=== PATIENT | female | born 1945 | race Caucasian/White ===

== ENCOUNTER 2017-06-11 11:16 | Inpatient (IN) | payer BC, MEDICARE ==
[~2017-06-11] VITALS: Ht 152.4 cm; Wt 68.4 kg
[~2017-06-11 11:16] MED LIST: ALLEGRA-D12 HOUR PO; COMBIVENT INH; DUONEB IN; FLONASE AL50 MCG/ACT NAB; LEVAQUIN500 MG PO; MEDDOSEPAK OR; NICODERM C21 MG/241 TD; NYSTATIN100000 M1 PO; PRILOSEC20 MG PO; PULMICORT180 MCG IN; XANAX0.25 MG PO; ZOLOFT50 MG PO
[2017-06-11 11:32] VITALS: BP 102/67
[2017-06-11 12:09] LABS: MEAN CORPUSCULAR HGB 24.4 pG CALC (26.0-32.0); NEUT# 10.62 thou/uL (2.00-7.15); RED BLOOD COUNT 4.22 mill/uL (4.20-5.60); RED CELL DISTRI WIDTH 15.6 % (11.5-15.5)
[2017-06-11 12:10] LABS: HEMATOCRIT 33.2 % (37.0-47.0); HEMOGLOBIN 10.3 g/dl (12.0-16.0); MEAN CELL VOLUME 78.7 fL CALC (80.0-100.0)
[2017-06-11 12:24] LABS: ANION GAP 19 (6-22 (CALC)); BUN 22 mg/dL (8-23); BUN/CREATININE RATIO 28 (12-20 (CALC)); CARBON DIOXIDE 29 mmol/l (22-30); CHLORIDE 93 mmol/l (95-108); CREATININE 0.8 mg/dL (0.5-1.0); GFR > 60 ML/MIN (>=60 (CALC)); GFR FOR AFR.AMER. > 60 ML/MIN (>=60 (CALC)); POTASSIUM 3.7 mmol/l (3.5-5.1); SODIUM 137 mmol/l (137-146)
[2017-06-11 14:46] LABS: URINE BILIRUBIN - DIPSTICK NEGATIVE (NEGATIVE); URINE BLOOD DIPSTICK MODERATE (NEGATIVE); URINE COLOR YELLOW; URINE GLUCOSE - DIPSTICK NEGATIVE (NEGATIVE); URINE KETONE TRACE mg/dL (NEGATIVE); URINE PROTEIN - DIPSTICK 100 mg/dL (NEG-TRACE); URINE UROBILINOGEN - DIPSTICK 0.2 E.U./dL (0.2)
[2017-06-11 14:47] LABS: URINE CLARITY TURBID; URINE LEUK ESTERASE MODERATE (NEGATIVE); URINE NITRITE - DIPSTICK POSITIVE (Negative)
[2017-06-11 14:55] LABS: URINE BACTERIA MODERATE hpf; URINE SQUAMOUS EPITHELIAL CELL FEW EPI/hpf (0-FEW); URINE WBC >100 WBC/hpf (0-5)
[2017-06-11] MEDS ORDERED: ADVAIR HF1 IN (15:36)
[2017-06-11] MEDS ORDERED: SPIRIVA RE2.5 MCG/AC IN (15:37)
[2017-06-11] MEDS ORDERED: PROAIR HFA IN (15:39)
[2017-06-11] MEDS ORDERED: ZOLOFT50 MG PO (15:40)
[2017-06-11] MEDS ORDERED: SINGULAIR10 MG PO (15:47)
[2017-06-11 16:00] VITALS: BP 94/64
[2017-06-11 20:00] VITALS: BP 91/62
[2017-06-12] VITALS (7 sets, daily range): BP systolic 100–117; BP diastolic 52–74
[2017-06-12 06:14] LABS: ALKALINE PHOSPHATASE 87 u/l (38-126); ANION GAP 14 (6-22 (CALC)); BILIRUBIN, TOTAL 0.4 mg/dL (0.0-1.4); BUN 21 mg/dL (8-23); BUN/CREATININE RATIO 37 (12-20 (CALC)); CARBON DIOXIDE 31 mmol/l (22-30); CHLORIDE 99 mmol/l (95-108); CREATININE 0.6 mg/dL (0.5-1.0); GFR > 60 ML/MIN (>=60 (CALC)); GFR FOR AFR.AMER. > 60 ML/MIN (>=60 (CALC)); POTASSIUM 3.5 mmol/l (3.5-5.1); SGOT/AST 17 u/l (9-36); SGPT/ALT 31 u/l (11-66); SODIUM 142 mmol/l (137-146)
[2017-06-12 06:17] LABS: TOTAL PROTEIN 5.8 g/dL (6.3-8.2)
[2017-06-13 04:50] VITALS: BP 128/73
[2017-06-13 05:33] LABS: HEMATOCRIT 31.7 % (37.0-47.0); HEMOGLOBIN 9.5 g/dl (12.0-16.0); MEAN CELL VOLUME 80.1 fL CALC (80.0-100.0); RED BLOOD COUNT 3.96 mill/uL (4.20-5.60); RED CELL DISTRI WIDTH 15.4 % (11.5-15.5)
[2017-06-13 05:48] LABS: ANION GAP 14 (6-22 (CALC)); BUN 21 mg/dL (8-23); BUN/CREATININE RATIO 34 (12-20 (CALC)); CARBON DIOXIDE 34 mmol/l (22-30); CHLORIDE 99 mmol/l (95-108); CREATININE 0.6 mg/dL (0.5-1.0); GFR > 60 ML/MIN (>=60 (CALC)); GFR FOR AFR.AMER. > 60 ML/MIN (>=60 (CALC)); POTASSIUM 3.9 mmol/l (3.5-5.1); SODIUM 143 mmol/l (137-146)
[2017-06-13 09:12] VITALS: BP 134/63
[2017-06-13] MEDS ORDERED: PREDNISONE10 MG PO (10:22)
== END 2017-06-13 12:15 | disposition home or self-care (01) | DRG 190 ==
LOC: MS2 11:16
PROVIDERS: ADMIT Internal Medicine; ATTEND Internal Medicine
DX: J44.1 Chronic obstructive pulmonary disease with (acute) exacerbation (principal); J96.20 Acute and chronic respiratory failure, unspecified whether with hypoxia or hypercapnia; Z99.81 Dependence on supplemental oxygen; N39.0 Urinary tract infection, site not specified; B96.20 Unspecified Escherichia coli [E. coli] as the cause of diseases classified elsewhere; Z85.3 Personal history of malignant neoplasm of breast; Z87.891 Personal history of nicotine dependence
CPT/HCPCS: J1956

== ENCOUNTER 2019-06-19 15:13 | Inpatient (IN) | payer BC, MEDICARE ==
[~2019-06-19] VITALS: Ht 152.4 cm; Wt 54.9 kg
[~2019-06-19 15:13] MED LIST changes: +ADVAIR HF1 IN; +PREDNISONE10 MG PO; +PROAIR HFA IN; +SINGULAIR10 MG PO; +SPIRIVA RE2.5 MCG/AC IN
--- NOTE | 2019-06-19 15:19 | NUR ---
Pt to room # 6 via W/C for bedside triage
--- NOTE | 2019-06-19 16:00 | NUR ---
TO THIS STAFF MEMBER , PT DENIES ANY DIZZINESS/ STATES THINKS IT IS ALL A UTI, PT IS ON O2 FOR 5 YEARS, ELISEOYI HAS NOT SMOKED FOR OVER 7 YEARS, BUT HAS COPD, CHF. SIGNIFICANT OTHER AT BEDSIDE.
[2019-06-19 16:03] LABS: HEMATOCRIT 35.4 % (37.0-47.0); HEMOGLOBIN 11.5 g/dl (12.0-16.0); IMMATURE GRANULOCYTES 0.5 % (0.0-5.0); MEAN CORPUSCULAR HGB 24.7 pG CALC (26.0-32.0); MEAN CORPUSCULAR HGB CONC 32.5 g/dL CAL (32.0-36.0); RED BLOOD COUNT 4.66 mill/uL (4.20-5.60); RED CELL DISTRI WIDTH 15.1 % (11.5-15.5)
[2019-06-19 16:21] LABS: ALBUMIN 4.1 g/dL (3.2-5.0); ALKALINE PHOSPHATASE 71 u/l (38-126); BUN 14 mg/dL (8-23); BUN/CREATININE RATIO 31 (12-20 (CALC)); CREATININE 0.5 mg/dL (0.5-1.0); GFR > 60 ML/MIN (>=60 (CALC)); GFR FOR AFR.AMER. > 60 ML/MIN (>=60 (CALC)); POTASSIUM 3.1 mmol/l (3.5-5.1); TOTAL PROTEIN 6.5 g/dL (6.3-8.2)
[2019-06-19 16:27] LABS: CARBON DIOXIDE 38 mmol/l (22-30)
--- NOTE | 2019-06-19 16:30 | NUR ---
PT UP TO BEDSIDE COMMODE. APPEARS VERY SHAKY, BUT STATES THAT IS HER NORMAL.
[2019-06-19 16:31] LABS: ANION GAP 10 (6-22 (CALC)); BILIRUBIN, TOTAL 0.6 mg/dL (0.0-1.4); CHLORIDE 81 mmol/l (95-108); SGOT/AST 34 u/l (9-36); SODIUM 126 mmol/l (137-146)
[2019-06-19 16:32] LABS: MYOGLOBIN 65 ng/mL (0 - 62)
[2019-06-19 16:54] LABS: URINE BILIRUBIN - DIPSTICK NEGATIVE (NEGATIVE); URINE BLOOD DIPSTICK NEGATIVE (NEGATIVE); URINE COLOR YELLOW; URINE GLUCOSE - DIPSTICK NEGATIVE (NEGATIVE); URINE KETONE TRACE mg/dL (NEGATIVE); URINE LEUK ESTERASE NEGATIVE (NEGATIVE); URINE NITRITE - DIPSTICK NEGATIVE (Negative); URINE PROTEIN - DIPSTICK NEGATIVE (NEG-TRACE); URINE SPECIFIC GRAVITY 1.015; URINE UROBILINOGEN - DIPSTICK 0.2 E.U./dL (0.2)
--- NOTE | 2019-06-19 17:37 | NUR ---
PT RESTING QUIETLY ON STRETCHER, IV FLUIDS INFUSING. STATES FEELS A LITTLE BETTER
--- NOTE | 2019-06-19 17:54 | NUR ---
TRIED TO RECONCILE MEDICATION LIST. PT DOES NOT KNOW DOSAGES OR HOW OFTEN, AND SAYS SHE DOES NOT HAVE A LIST THAT SHOWS THAT.
--- NOTE | 2019-06-19 18:11 | NUR ---
PT PLACED BACK ON BED PAIN PER REQUEST, APPROX 300CC URINE OUTPUT
--- NOTE | 2019-06-19 18:55 | NUR ---
RECEIVED BEDSIDE REPORT FROM DANITA Nesbitt. PATIENT RESTING QUIETLY AT THIS TIME.
--- NOTE | 2019-06-19 19:48 | NUR ---
PATIENT AND FAMILY NOTIFIED OF ROOM ASSIGNMENT AND VISITATION RESTRICTION. PATIENT BELONGINGS GIVEN TO SPOUSE TO TAKE HOME.
--- NOTE | 2019-06-19 20:06 | NUR ---
HAND OFF REPORT GIVEN TO INPATIENT NURSE.PATIENT TO ROOM 261.
[2019-06-19 20:25] VITALS: BP 120/69
--- NOTE | 2019-06-19 20:25 | NUR ---
pt arrived to the floor via stretcher, reports being "very weak" and was unable to self transfer from the stretcher to the bed. Pt appears to be in stable condition at this time. sob upon exertion is noted. 02nc on 2L, pt reports being home dependent. pt reports sob is normal for her due to copd. v/s assessed and pt is being oriented to room, call system. bed, lights and tv.
--- NOTE | 2019-06-19 21:30 | NUR ---
PT ASSESSMENT COMPLETED AND ADMISSION QUESTIONS REVIEWED. PT IS A POOR HISTORIAN, BUT APPEARS LOC X4. REPORTS THAT SHE LIVES AT HOME W/. HAD BEEN TREATED RECENTLY FOR UTI, BUT GENERALIZED WEAKNESS WORSENED IN THE LAST COUPLE OF DAYS. PT REPORTS FEELING SOB, BUT REPORTS THAT HER NORMAL BASELINE. 02 2LNC IS ON. IVF STARTED AT THIS TIME, NS @75 TO PERIPHERAL IV, SITE APPEARS HEALTHY. SKIN APPEARS INTACT. PT UNABLE TO REPORT LAST BM, BUT STATES A LACK OF APPETITE LATELY. LUNG SOUNDS CLEAR UPPER W/DIM LUNG SOUNDS BLL. PT BECOMES SOB UPON TALKING OR EXERTIONAL. PUREWICK HAS BEEN PLACED DUE TO PT'S WEAKNESS AND SOB AT THIS TIME, STATING SHE IS UNABLE TO AMBULATE W/ASSISTANCE TO BSC. WILL CONTINUE TO MONITOR. CALL LIGHT AT SIDE AND PT REVIEWED CALL SYSTEM AND ENCOURAGED TO CALL NEEDS ARISE.
[2019-06-19 23:50] VITALS: BP 110/65
--- NOTE | 2019-06-19 23:54 | NUR ---
COLD STRIP FEEDER IN OBTAINING V/S, NO S/O DISTRESS NOTED. PT DENIES ANY NEEDS AT THIS TIME. PUREWICK IN PLACE W/SUCTION ON CONT LOW.
--- NOTE | 2019-06-20 01:36 | NUR ---
pt sleeping, no s/o distress noted. call light at side.
[2019-06-20 03:40] VITALS: BP 101/59
--- NOTE | 2019-06-20 03:51 | NUR ---
PT SLEEPING SOUNDLY, NO S/O DISTRESS NOTED. CALL LIGHT AT BEDSIDE.
[2019-06-20 05:10] LABS: BUN 11 mg/dL (8-23); BUN/CREATININE RATIO 27 (12-20 (CALC)); CHLORIDE 89 mmol/l (95-108); CREATININE 0.4 mg/dL (0.5-1.0); GFR > 60 ML/MIN (>=60 (CALC)); GFR FOR AFR.AMER. > 60 ML/MIN (>=60 (CALC)); SODIUM 132 mmol/l (137-146)
[2019-06-20 05:16] LABS: ANION GAP 8 (6-22 (CALC)); CARBON DIOXIDE 38 mmol/l (22-30)
--- NOTE | 2019-06-20 07:00 | NUR ---
REPORT RECEIVED FROM DANITA SOTO. PT RESTING IN BED FILI FOWLERS; ALERT AND ORIENTED X 3. DENIES PAIN. RESPIRATIONS EVEN AND UNLABORED ON OXYGEN 2L VIA NC WHICH SHE IS HOME DEPENDENT UPON. IV FLUIDS INFUSING WITHOUT DIFFICULTY; IV SITE APPEARS HEALTHY. TELE ON. PLAN OF CARE REVIEWED. PT ENCOURAGED TO VERBALIZE CONCERNS. STATES UNDERSTANDING. SAFETY MEASURES IN PLACE. CALL LIGHT WITHIN REACH.
[2019-06-20 08:00] VITALS: BP 132/54
--- NOTE | 2019-06-20 08:49 | NUR ---
PT REPORTING SEVERE ANXIETY; XANAX GIVEN AND NURSE AT BEDSIDE. RELAXATION TECHNIQUES ENCOURAGED.
--- NOTE | 2019-06-20 08:53 | NUR ---
DR. CRISTINA AT BEDSIDE.
--- NOTE | 2019-06-20 09:55 | NUR ---
ADDITIONAL DOSE OF XANAX GIVEN FOR ANXIETY AND NEW MEDS ORDERED. PT APPEARS MORE RELAXED WITH IMPROVED BREATHING. SON UPDATED; QUESTIONS ANSWERED TO SATISFACTION.
[2019-06-20] MEDS ORDERED: ZOLOFT100 MG PO (10:19)
[2019-06-20] MEDS ORDERED: ADVAIR HF1 IN (10:20)
[2019-06-20] MEDS ORDERED: XANAX0.25 MG PO (10:20)
[2019-06-20] MEDS ORDERED: SPIRIVA RE1.25 MCG/A INHW/SPAC (10:21)
[2019-06-20] MEDS ORDERED: PROAIR HFA IN (10:21)
[2019-06-20 10:41] VITALS: BP 105/63
--- NOTE | 2019-06-20 11:04 | NUR ---
PT SITTING UP TAKING TO SON ON CELL PHONE; MUCH CALMER. SECOND DOSE OF POTASSIUM ADMINISTERED. PURWIK CATHETER IN PLACE; CLEAR YELLOW URINE.
--- NOTE | 2019-06-20 14:00 | NUR ---
PT AT BEDSIDE FOR EVAL. PT AMBULATED WITH WALKER TO BATHROOM. PURWIK REPLACED.
[2019-06-20 15:35] VITALS: BP 117/60
--- NOTE | 2019-06-20 16:19 | NUR ---
PT note Patient is seen for evaluation. She would prefer to go home with home health. She is limited by severe weakness and dyspnea at 2 plus when ambulating 20 or more feet. She is weak and would benefit from a walker and PT and OT at discharge. Please refer to full eval for somplete results
--- NOTE | 2019-06-20 16:34 | NUR ---
XANAX AND MIRALAX GIVEN AT THIS TIME. PT ANXIOUS AND WORRIED ABOUT DISCHARGE PLANS. ALLOWED PT TO VERBALIZE CONCERNS.
--- NOTE | 2019-06-20 17:23 | NUR ---
PT C/O ANXIETY AND WORRIED ABOUT MEDICATIONS. DISCUSSED MEDS TO BE GIVEN AND ENOURAGED PT TO VERBALIZE MED CONCERNS WITH MD TOMORROW DURING ROUNDS. RELAXATION TECHNIQUES ENCOURAGED WELL.
[2019-06-20 18:35] VITALS: BP 115/63
--- NOTE | 2019-06-20 20:35 | NUR ---
PT RESTING IN BED, ALERT AND ORIENTED. PT SEEMS ANXIOUS. RESPIRATIONS SHALLOW ON O2 @ 2L VIA NC. PEDAL PULSES STRONG. PT DENIES ANY PAIN AT THIS TIME. PT EDUCATED ON MEDS. TELE IN PLACE. CALL VERA WITHIN REACH, WILL CONTINUE TO MONITOR.
[2019-06-21] VITALS (7 sets, daily range): BP systolic 111–124; BP diastolic 61–70
--- NOTE | 2019-06-21 00:02 | NUR ---
PT RESTING IN BED. NO S/S OF DISTRESS AT THIS TIME. TELE IN PLACE. WILL CONMTINUE TO MONITOR.
--- NOTE | 2019-06-21 04:02 | NUR ---
PT RESTING IN BED. RESPIRATIONS EVEN AND UNLABORED ON O2 @ 2L VIA NC. NO S/S OF DISTRESS AT THIS TIME. SAFETY PRECAUTIONS IN PLACE. WILL CONTINUE TO MONITOR.
[2019-06-21 05:08] LABS: HEMATOCRIT 35.9 % (37.0-47.0); IMMATURE GRANULOCYTES 0.6 % (0.0-5.0); MEAN CORPUSCULAR HGB 25.3 pG CALC (26.0-32.0); MEAN CORPUSCULAR HGB CONC 30.6 g/dL CAL (32.0-36.0); NEUT# 5.41 thou/uL (2.00-7.15); RED BLOOD COUNT 4.35 mill/uL (4.20-5.60); RED CELL DISTRI WIDTH 15.7 % (11.5-15.5)
[2019-06-21 05:15] LABS: MEAN CELL VOLUME 82.5 fL CALC (80.0-100.0)
[2019-06-21 05:28] LABS: BUN 17 mg/dL (8-23); BUN/CREATININE RATIO 35 (12-20 (CALC)); CHLORIDE 97 mmol/l (95-108); CREATININE 0.5 mg/dL (0.5-1.0); GFR > 60 ML/MIN (>=60 (CALC)); GFR FOR AFR.AMER. > 60 ML/MIN (>=60 (CALC))
[2019-06-21 05:31] LABS: ANION GAP 8 (6-22 (CALC)); CARBON DIOXIDE 39 mmol/l (22-30); POTASSIUM 4.5 mmol/l (3.5-5.1); SODIUM 139 mmol/l (137-146)
--- NOTE | 2019-06-21 08:00 | NUR ---
ASSESSMENT IS COMPLETED: IV SITE IS FREE FROM REDNESS OR EDEMA. HR IS REG,PULSES ARE STRONG X4,ABD IS SOFT WITH ACTIVE BS. BREATH SOUNDS ARE CLEAR BILATERAL. TELE MONITOR IN PLACE. CONTINUE TO OSBERVE AND MONITOR.
--- NOTE | 2019-06-21 12:15 | NUR ---
PT HAS BEEN RELAXING IN BED WITH NO DISTRESS NOTED. IV SITE IS FREE FROM REDNESS OR EDEMA. TELE MONITOR IN PLACE. PT HAS A PURE WICK IN PLACE. WAS INCONTINENT OF URINE.
--- NOTE | 2019-06-21 14:11 | NUR ---
PATIENT REFUSED TO PERFORM GAIT TRAINING TODAY, HOWEVER, AGREED TO PERFORM BLE STRENGTHENING EXERCISES IN SUPINE POSITION. PATIENT PERFORMED SLR, HIP ABDUCTION, KNEE FLEXION-EXTENSION, AND ANKLE PUMPS. INCORPORATED PROPER BREATHING TO PREVENT SOB AND O2 SAT DROPPING TO <90 DEG. PATIENT ABLE TO COMPLETE 10 REPS X 1 SET ON EACH LE WITH FREQUENCT BRIEF REST PERIODS DUE TO SOB. PATIENT IN O2 SUPPLEMENT THROUGHT THE EXERCISES. PT INSTRUCTED PATIENT TO PERFORM EXERCISES 2X/DAILY AMPAC = 13
--- NOTE | 2019-06-21 16:05 | NUR ---
PT RECEIVED HER 1400 ANXIETY MEDICATION. STATED" I WILL PROBABLY BE A SLEEP WHEN DINNER COMES, IT WILL BE DISTURBING DUE TO NOT EATING." EXPLAINED THAT WE WILL WAKE HER UP.
--- NOTE | 2019-06-21 20:20 | NUR ---
PT RESTING IN BED DROWSY. RESPIRATIONS SHALLOW ON O2 @ 2L VIA NC. LUNGS SOUND DIMINISHED. PEDAL PULSES STRONG. PT DENIES ANY PAIN OR DISCOMFORT. TELE IN PLACE. CALL VERA WITHIN REACH. WILL CONTINUE TO MONITOR.
--- NOTE | 2019-06-22 00:26 | NUR ---
PT RESTING IN BED WITH EYES CLOSED. TELE IN PLACE. NO S/S OF DISTRESS AT THIS TIME. SAFETY PRECAUTIONS IN PLACE. WILL CONTINUE TO MONITOR.
--- NOTE | 2019-06-22 03:49 | NUR ---
PT RESTING IN BED AT THIS TIME, NO S/S OF DISTRESS AT THIS TIME. SAFETY PRECAUTIONS IN PLACE. WILL CONTINUE TO MONTIOR.
[2019-06-22 04:44] VITALS: BP 104/62
--- NOTE | 2019-06-22 07:12 | NUR ---
CHANGE OF SHIFT REPORT RECEIVED FROM DANITA YAO. PT SLEEPING IN ROOM, RESPIRATION EVEN AND UNLABORED
[2019-06-22 08:01] VITALS: BP 80/44
--- NOTE | 2019-06-22 08:17 | NUR ---
PT WITH BP AT 80/44. ORI BAILON NOTIFIED. NO NEW ORDERS AT THIS TIME. PRESS OPERATOR ASSISTANT WILL CONTINUE TO MONITOR
--- NOTE | 2019-06-22 09:32 | NUR ---
Attempted treatment but pt was sleeping and unable to co operate. Nursing reported she was medicated at 6 am and aware. Will attempt to see pt in pm.
[2019-06-22 10:35] VITALS: BP 117/62
--- NOTE | 2019-06-22 12:00 | NUR ---
PT IS LESS DROWSY AND BP NOW 117/62. NO S/S OF DISTRESS. PT ABLE TO COMMUNICATE NEEDS. FLUIDS OFFERED AND PT REPOSITIONED FOR COMFORT. DRIVER MESSENGER WILL CONTINUE TO MONITOR
[2019-06-22 15:04] VITALS: BP 133/68
--- NOTE | 2019-06-22 15:20 | NUR ---
pt performed while supine in bed- SLR 1x10, ankle pumps 1x10, dorsiflexion 1x10, SAQ 1x10 therapist attempted to assist patient in transferring out of bed for gait training however pt refused to get out of bed at this time
--- NOTE | 2019-06-22 16:44 | NUR ---
PT RESTING COMFORTABLY. PT NOTIFIED THAT SHE CAN GET XANAX EVERY 8 HOURS NEEDED FOR ANXIETY. PT STATES THAT SHE WILL NOTIFY TRAIN DISPATCHER WHEN SHE NEEDS THE XANAX. FLUIDS OFFERED, LIP BALM APPLIED ON PT'S LIPS. CALL LIGHT WITHIN EASY REACH. TRAIN DISPATCHER WILL CONTINUE TO MONITOR
[2019-06-22 18:55] VITALS: BP 121/57
--- NOTE | 2019-06-22 20:10 | NUR ---
PHYSICAL ASSESMENT COMPLETE. VS TAKEN BY YVES @ 6088 ASSESED. TELEMETRY READING FROM ED SUPERVISOR PLASTICS @ 1999 ASSESSED. PLAN OF CARE REVIEWED, PT VERBALIZES UNDERSTANDING, DENIES QUESTIONS. PT DENIES NEEDS @ THIS TIME. ITEMS WITHIN REACH. CALL VERA WITHIN REACH, AGREES TO CALL PRN. BED LOCKED IN LOW POSITION W/ BEDRAILS UP X2.
[2019-06-22 23:45] VITALS: BP 136/65
--- NOTE | 2019-06-23 | NUR ---
PT APPEARS TO BE SLEEPING, NO APPARENT DISTRESS, APPEARS COMFORTABLE, RESPIRATIONS REGULAR AND UNLABORED. VS TAKEN BY SLASHER RUNNER @ 2345 ASSESED. TELEMETRY READING FROM ED HEAD BANQUET WAITER/WAITRESS @ 0000 ASSESSED. ITEMS REMAIN WITHIN REACH. CALL VERA REMAINS WITHIN REACH, BED REMAINS LOCKED IN LOW POSITION W/ BEDRAILS UP X2.
[2019-06-23 03:50] VITALS: BP 121/65
--- NOTE | 2019-06-23 05:29 | NUR ---
NO CHANGE IN PHYSICAL ASSESMENT. VS TAKEN BY CANVAS REPAIRER @ 0350 ASSESED. TELEMETRY READING REPORTED BY ED AGRONOMY RESEARCH MANAGER @ 0400 ASSESED. PT APPEARS COMFORTABLE AND IN NO DISTRESS. LAYING IN BED RESTING. DENIES NEEDS @ THIS TIME. CALL VERA REMAINS WITHIN REACH, AGREES TO CALL PRN. ITEMS REMAIN WITHIN REACH. BED REMAINS LOCKED IN LOW POSITION W/ BED RAILS UP X2.
[2019-06-23 05:36] LABS: BUN 31 mg/dL (8-23); BUN/CREATININE RATIO 73 (12-20 (CALC)); CHLORIDE 89 mmol/l (95-108); CREATININE 0.4 mg/dL (0.5-1.0); GFR > 60 ML/MIN (>=60 (CALC)); GFR FOR AFR.AMER. > 60 ML/MIN (>=60 (CALC)); POTASSIUM 3.9 mmol/l (3.5-5.1); SODIUM 136 mmol/l (137-146)
[2019-06-23 05:45] LABS: ANION GAP 6 (6-22 (CALC))
[2019-06-23 05:50] LABS: CARBON DIOXIDE 45 mmol/l (22-30)
--- NOTE | 2019-06-23 06:05 | NUR ---
SERUM CO2 45, CRITICAL HIGH VALUE REPORTED TO DR. BARTON. ORDER FOR ABG RECEIVED. PT IS IN NO DISTRESS. RESTING IN BED COMFORTABLY. CALL VERA IN REACH, AGREES TO CALL PRN.
--- NOTE | 2019-06-23 06:41 | NUR ---
SPOKE W/ DR BARTON RE: ABG RESULTS, NO FURTHER ORDERS @ THIS TIME.
--- NOTE | 2019-06-23 07:15 | NUR ---
change of shift report received from estefani Roque. pt awake and alert. call light within easy reach. information writer will continue to monitor
--- NOTE | 2019-06-23 08:20 | NUR ---
PHONE CALLED RECEIVED FROM DOCTOR CARLOS TO DISCUSS PT'S PCOS RESULTS. ADVISED TO GET PT OUT OF BED TO HELP WITH RESPIRATORY. PT ASSISTED TO RECLINER. FEET ELEVATED. PT EDUCATED ON PURSED LIP BREATHING PT WITH EXERTIONAL SOB. PT REASSESED. CALL LIGHT WITHIN EASY REACH. PTY AGREES TO NOTIFY INCIDENT MANAGER OF ANY CONCERNS. INCIDENT MANAGER WILL CONTINUE TO MONITOR
[2019-06-23 08:25] VITALS: BP 135/62
--- NOTE | 2019-06-23 10:11 | NUR ---
XANAX 0.5MG ADMINISTERED FOR COMPIANT OF ANXIETY. TIRE BALANCER WILL CONTINUE TO MONITOR
--- NOTE | 2019-06-23 10:48 | NUR ---
PCG,ALFREDO CALLED. ABLE TO STATE PT'S PIN NUMBER. POC REVIEWED WITH PCG. PCG STATES THAT HE WANTS PATIENT TO BE DISCHARGED TO [facility]. SENIOR TRAINING SPECIALIST,DEISY NOTIFIED.
[2019-06-23 11:01] VITALS: BP 117/72
--- NOTE | 2019-06-23 11:29 | NUR ---
PT note: Patient is OOB with nursing today. Her paradoxical breathing continues even at rest. Otherwise her vitals are stable. She is able to perform repeated sit to stand but did so less than 5 times before dyspnea at 2. She is able to stand with mod assist of 1. Her Am Pac is unchanged but she would like to go home with home health. This is her preference but she would do well in ECF to give her time to recover and receive rehab to improve her indpendence
--- NOTE | 2019-06-23 12:00 | NUR ---
PT SLEEPING. NO S/S OF DISTRESS. JOB COMPOSITOR WILL CONTINUE TO MONITOR
[2019-06-23 15:36] VITALS: BP 126/66
--- NOTE | 2019-06-23 16:12 | NUR ---
PT SITTING ON BEDPAN. PT WITH EXERTIONAL DYSPNEA. PT ASSISTED BACK TO RECLINER. PT CONTINUES TO SAT BETWEEN 90 TO 93% ON O2 AT 1 LPM. SUPERVISOR FILTER ASSEMBLY WILL CONTINUE TO MONITOR
[2019-06-23 18:34] VITALS: BP 141/68
--- NOTE | 2019-06-23 20:15 | NUR ---
PHYSICAL ASSESMENT COMPLETE. VS TAKEN BY YVES @ 4882 ASSESED. TELEMETRY READING FROM ED CORPORATE LAWYER @ 1999 ASSESSED. PLAN OF CARE REVIEWED, PT VERBALIZES UNDERSTANDING, DENIES QUESTIONS. PT DENIES NEEDS @ THIS TIME. ITEMS WITHIN REACH. CALL VERA WITHIN REACH, AGREES TO CALL PRN. BED LOCKED IN LOW POSITION W/ BEDRAILS UP X2.
[2019-06-23 23:28] VITALS: BP 117/60
--- NOTE | 2019-06-24 01:30 | NUR ---
PT APPEARS TO BE SLEEPING, NO APPARENT DISTRESS, APPEARS COMFORTABLE, RESPIRATIONS REGULAR AND UNLABORED. VS TAKEN BY JUNIOR PARALEGAL @ 2328 ASSESED. TELEMETRY READING FROM ED ALLEY CLEANER @ 0000 ASSESSED. ITEMS REMAIN WITHIN REACH. CALL VERA REMAINS WITHIN REACH, BED REMAINS LOCKED IN LOW POSITION W/ BEDRAILS UP X2.
[2019-06-24 03:30] VITALS: BP 104/61; BP 125/65
--- NOTE | 2019-06-24 05:03 | NUR ---
NO CHANGE IN PHYSICAL ASSESMENT. VS TAKEN BY PRODUCTION TEAM MEMBER @ 0330 ASSESED. TELEMETRY READING REPORTED BY ED RING ROLLING MACHINE OPERATOR @ 0400 ASSESED. PT APPEARS COMFORTABLE AND IN NO DISTRESS. LAYING IN BED RESTING. DENIES NEEDS @ THIS TIME. CALL VERA REMAINS WITHIN REACH, AGREES TO CALL PRN. ITEMS REMAIN WITHIN REACH. BED REMAINS LOCKED IN LOW POSITION W/ BED RAILS UP X2.
[2019-06-24 07:36] VITALS: BP 121/62
--- NOTE | 2019-06-24 07:36 | NUR ---
PT SLEEPING IN BED. AWAKENED TO COMPLETE ASSESSMENT. A&O X3. NO DISTRESS NOTED. O2 VIA NC @1L IN PLACE. NO OTHER NEEDS AT THIS TIME. ASSESSMENT COMPLETED. DISCUSSED POC. CALL LIGHT IN REACH. CONTINUE TO MONITOR.
--- NOTE | 2019-06-24 08:44 | NUR ---
PER PT SHE IS NOT FEELING AN APPETITE AT THIS TIME, ENCOURAGED PT TO DRINK ENSURE, PER PT SHE WILL TRY AND DRINK IT LATER
[2019-06-24 11:20] VITALS: BP 158/57
--- NOTE | 2019-06-24 12:08 | NUR ---
AT BEDSIDE ENCOURAGING PT TO DRINK ENSURE. PT DRANK WHOLE BOTTLE OF ENSURE.
--- NOTE | 2019-06-24 13:52 | NUR ---
PT EXHIBITING SOME ANXIETY , XANAX GIVEN
--- NOTE | 2019-06-24 14:00 | NUR ---
PHYSICAL THERAPY AT BEDSIDE PERFORMING ROM EXERCISED WITH THE PT
--- NOTE | 2019-06-24 14:21 | NUR ---
PT WAS SEEN THIS AFTERNOON. NOTED RESTING DYSPNEA THAT WORSENED SHE TALKED TO ME. PT WAS RESTING SUPINE IN THE BED WITH HOB ELEVATED TO 45 DEG. SHE DECLINED TO PERFORM OR COOPERATE WITH BED MOB OR TRANSFER ACTIVITY. THEREX WAS THEN DONE WHICH INCLUDED PASSIVE ROM EX ON B LE. AT ONE POINT, PT REQUESTED TO DISCONTINUE TX SHE ONLY WANTED TO REST. SHE ALSO REQUESTED FOR ANXIETY MEDICATION TO FEEL BETTER. SPENT 15 MINS ON THEREX. PT'S BP BEFORE AND AFTER TX REMAINED 122/80 MMHG. NO ADVERSE RECTIONS NOTED OR REPORTED AT THE END OF TX.
[2019-06-24 15:15] VITALS: BP 140/47
[2019-06-24 19:30] VITALS: BP 122/60
--- NOTE | 2019-06-24 20:15 | NUR ---
PHYSICAL ASSESMENT COMPLETE. VS TAKEN BY YVES @ 1930 ASSESED. TELEMETRY READING FROM ED WOMEN'S ACTIVITIES ADVISER @ 1999 ASSESSED. PLAN OF CARE REVIEWED, PT VERBALIZES UNDERSTANDING, DENIES QUESTIONS. PT DENIES NEEDS @ THIS TIME. ITEMS WITHIN REACH. CALL VERA WITHIN REACH, AGREES TO CALL PRN. BED LOCKED IN LOW POSITION W/ BEDRAILS UP X2.
--- NOTE | 2019-06-24 22:15 | NUR ---
ZOLOFT AND REMERON SCHEDULED FOR 2100 OMITTED @ THIS TIME. PT DECLINES TO TAKE SCHEDULED MEDICATIONS. MEDICATIONS HELD PER PTS REQUEST.
[2019-06-25 00:30] VITALS: BP 120/62
--- NOTE | 2019-06-25 01:25 | NUR ---
PT APPEARS TO BE SLEEPING, NO APPARENT DISTRESS, APPEARS COMFORTABLE, RESPIRATIONS REGULAR AND UNLABORED. VS TAKEN BY EMPLOYEE BENEFITS ADMINISTRATOR @ 0030 ASSESED. TELEMETRY READING FROM ED MEDICAL DRIVER @ 0000 ASSESSED. ITEMS REMAIN WITHIN REACH. CALL VERA REMAINS WITHIN REACH, BED REMAINS LOCKED IN LOW POSITION W/ BEDRAILS UP X2.
[2019-06-25 04:16] VITALS: BP 125/70
--- NOTE | 2019-06-25 04:41 | NUR ---
NO CHANGE IN PHYSICAL ASSESMENT. VS TAKEN BY MODEL DRESSER @ 0416 ASSESED. TELEMETRY READING REPORTED BY ED UNIVERSITY EXTENSION SPECIALIST @ 0400 ASSESED. PT APPEARS COMFORTABLE AND IN NO DISTRESS. LAYING IN BED RESTING. DENIES NEEDS @ THIS TIME. CALL VERA REMAINS WITHIN REACH, AGREES TO CALL PRN. ITEMS REMAIN WITHIN REACH. BED REMAINS LOCKED IN LOW POSITION W/ BED RAILS UP X2.
[2019-06-25 06:28] LABS: HEMATOCRIT 31.3 % (37.0-47.0); HEMOGLOBIN 9.4 g/dl (12.0-16.0); IMMATURE GRANULOCYTES 0.4 % (0.0-5.0); MEAN CELL VOLUME 83.7 fL CALC (80.0-100.0); MEAN CORPUSCULAR HGB 25.1 pG CALC (26.0-32.0); NEUT# 6.06 thou/uL (2.00-7.15); RED BLOOD COUNT 3.74 mill/uL (4.20-5.60); RED CELL DISTRI WIDTH 15.9 % (11.5-15.5)
[2019-06-25 06:41] LABS: ALBUMIN 3.3 g/dL (3.2-5.0); ALKALINE PHOSPHATASE 66 u/l (38-126); BILIRUBIN, TOTAL 0.4 mg/dL (0.0-1.4); BUN 25 mg/dL (8-23); BUN/CREATININE RATIO 63 (12-20 (CALC)); CHLORIDE 87 mmol/l (95-108); CREATININE 0.4 mg/dL (0.5-1.0); GFR > 60 ML/MIN (>=60 (CALC)); GFR FOR AFR.AMER. > 60 ML/MIN (>=60 (CALC)); POTASSIUM 3.7 mmol/l (3.5-5.1); SGOT/AST 17 u/l (9-36); SODIUM 136 mmol/l (137-146); TOTAL PROTEIN 5.4 g/dL (6.3-8.2)
[2019-06-25 06:47] LABS: ANION GAP 6 (6-22 (CALC))
[2019-06-25 06:53] LABS: CARBON DIOXIDE 47 mmol/l (22-30)
--- NOTE | 2019-06-25 07:06 | NUR ---
ATTEMPT MADE TO REPORT CRTICAL RESULT TO DR JENSEN, NO ANSWER. VOICEMAIL LEFT. AWAITING CALL BACK
[2019-06-25 07:31] VITALS: BP 144/73
--- NOTE | 2019-06-25 07:31 | NUR ---
PT SLEEPING IN BED. AWAKENED TO COMPLETE ASSESSMENT. A&O X3. O2 @1L IN PLACE. SHALLOW BREATHING NOTED. ASKED PT IF THIS IS HER NORMAL BREATHING PATTERN, PER PT IT IS. ASKED PT IF SHE WAS HAVING DIFFICULTY BREATHING, PER PT "SOMETIMES". EXPLAINED TO PT THAT CO2 LEVEL WAS TRENDING UP AND THAT SHE WILL BE ASSISTED TO THE CHAIR TODAY. PT VERBALIZED UNDERSTANDING. ASSESSMENT COMPLETED. DISCUSED POC. CALL LIGHT IN REACH. CONTINUE TO MONITOR.
--- NOTE | 2019-06-25 07:52 | NUR ---
CRITICAL RESULT REPORTED TO DR JENSEN NO FURTHER INTERVENTIONS AT THIS TIME
[2019-06-25 12:00] VITALS: BP 139/73
--- NOTE | 2019-06-25 13:19 | NUR ---
PT ASSISTED TO THE RECLINER. PT ANXIOUS AFTER SPEAKING WITH DR JENSEN ABOUT REHAB PLACEMENT. PT VOICED BEING SCARED OF GOING TO A NEW PLACE. EXPLAINED TO THE PT THAT REHAB WAS A BETTER OPTION TO HAVE PHYSICAL THERAPY WORK WITH HER TO REGAIN HER STRENGTH. PT VERBALIZED UNDERSTANDING.
[2019-06-25 15:18] VITALS: BP 116/68
--- NOTE | 2019-06-25 15:30 | NUR ---
EXPLAINED TO PT THAT IV SITE WAS DUE TO BE CHANGED. PER PT REQUEST, IF IV SITE WORKS FINE SHE WOULD PREFER TO KEEP IT INSTEAD OF REPLACING IT IF IT DOES NOT HAVE TO BE
--- NOTE | 2019-06-25 17:50 | NUR ---
PT SLEEPING IN BED. NO DISTRESS NOTED. CONTINUE TO MONITOR.
[2019-06-25 18:52] VITALS: BP 136/73
--- NOTE | 2019-06-25 20:22 | NUR ---
PT. LAYING DOWN IN BED WITH SLIGHT ANXIETY NOTED. ASSESSMENT COMPLETED. PM MEDS BROUGHT IN AND ASKED MULTIPLE TIMES IN REGARDS TO IF SHE WOULD TAKE THEM. PT. ONLY AGREES TO TAKE LEXAPRO AND REFUSES REMERON WELL PRN MIRALAX TO ASSIST WITH BM. O2 INFUSING PER NC PER ORDER. ENCOURAGED TO CALL FOR ANY NEEDS. RETENTION MANAGER IN AT BEDSIDE TO ASSIST PT. TO THE BSC. CALL LIGHT IS IN REACH.
--- NOTE | 2019-06-25 22:45 | NUR ---
NEW IV STARTED TO RFA X1 ATTEMPT AND IV REMOVED FROM LAC. PT. MEDICATED WITH ORDERED PRN XANAX; WILL REASSESS.
[2019-06-26] VITALS (9 sets, daily range): BP systolic 109–143; BP diastolic 50–76
--- NOTE | 2019-06-26 00:05 | NUR ---
PT. RESITNG IN BED WITH EYES CLOSED.
--- NOTE | 2019-06-26 03:45 | NUR ---
PT. RESTING IN BED WITH NO DISTRESS NOTED; DENIES NEEDS. CALL LIGHT IS IN REACH.
[2019-06-26 05:15] LABS: BUN 31 mg/dL (8-23); BUN/CREATININE RATIO 83 (12-20 (CALC)); CHLORIDE 87 mmol/l (95-108); CREATININE 0.4 mg/dL (0.5-1.0); GFR > 60 ML/MIN (>=60 (CALC)); GFR FOR AFR.AMER. > 60 ML/MIN (>=60 (CALC)); POTASSIUM 3.9 mmol/l (3.5-5.1); SODIUM 135 mmol/l (137-146)
[2019-06-26 05:25] LABS: ANION GAP 8 (6-22 (CALC)); CARBON DIOXIDE 44 mmol/l (22-30)
--- NOTE | 2019-06-26 07:13 | NUR ---
PT LAYING IN BED. A&O X3. NO DISTRESS NOTED. O2 VIA NC @1L IN PLACE, SHALLOW BREATHING NOTED. EXPLAINED TO PT THAT WE WERE GOING TO GET HER UP IN THE RECLINER TODAY, PT AGREED. NO OTHER NEEDS AT THIS TIME. ASSESSMENT COMPLETED. DISUSSED POC. CALL LIGHT IN REACH. CONTINUE TO MONITOR.
--- NOTE | 2019-06-26 10:15 | NUR ---
PT SITTING IN THE RECLINER NO DISTRESS NOTED. CALL LIGHT IN REACH. CONTINUE TO MONITOR.
--- NOTE | 2019-06-26 10:50 | NUR ---
PT REQUESTS TO BE PUT BACK IN BED. ASSISTED PT BACK IN BED WITH UNSTEADY STAND/GAIT NOTED. CALL LIGHT IN REACH. CONTINUE TO MONITOR.
--- NOTE | 2019-06-26 17:48 | NUR ---
PT EXHIBITING SIGNS OF ANXIETY, XANAX GIVEN
--- NOTE | 2019-06-26 19:05 | NUR ---
REPORT FROM BILLY BLOOM. PT RESTING IN BED WITH EYES CLOSED. NO APPARENT DISTRESS NOTED. PT WAKES EASILY. DENIES ANY PAIN OR DISCOMFORT. RESPIRATIONS EVEN AND UNLABORED, 1L/M VIA NC. DISCUSSED POC, PT VERBALIZED UNDERSTANDING. CALL LIGHT WITHIN REACH. WILL CONTINUE TO MONITOR.
--- NOTE | 2019-06-26 23:22 | NUR ---
PT RESTING IN BED WITH EYES CLOSED. NO APPARENT DISTRESS NOTED. RESPIRATIONS EVEN AND UNLABORED. CALL LIGHT WITHIN REACH. WILL CONTINUE TO MONITOR.
--- NOTE | 2019-06-27 03:58 | NUR ---
PT RESTING IN BED WITH EYES CLOSED. O2 IN PLACE. NO APPARENT DISTRESS NOTED. CALL LIGHT WITHIN REACH. WILL CONTINUE TO MONITOR.
[2019-06-27 04:00] VITALS: BP 124/67
[2019-06-27 05:13] LABS: HEMATOCRIT 33.3 % (37.0-47.0); HEMOGLOBIN 9.8 g/dl (12.0-16.0); MEAN CELL VOLUME 84.1 fL CALC (80.0-100.0); MEAN CORPUSCULAR HGB 24.7 pG CALC (26.0-32.0); MEAN CORPUSCULAR HGB CONC 29.4 g/dL CAL (32.0-36.0); RED BLOOD COUNT 3.96 mill/uL (4.20-5.60); RED CELL DISTRI WIDTH 16.2 % (11.5-15.5)
[2019-06-27 05:27] LABS: BUN 33 mg/dL (8-23); BUN/CREATININE RATIO 78 (12-20 (CALC)); CHLORIDE 87 mmol/l (95-108); CREATININE 0.4 mg/dL (0.5-1.0); GFR > 60 ML/MIN (>=60 (CALC)); GFR FOR AFR.AMER. > 60 ML/MIN (>=60 (CALC)); POTASSIUM 3.7 mmol/l (3.5-5.1); SODIUM 137 mmol/l (137-146)
[2019-06-27 05:34] LABS: ANION GAP 4 (6-22 (CALC))
[2019-06-27 05:35] LABS: CARBON DIOXIDE 50 mmol/l (22-30)
[2019-06-27 07:50] VITALS: BP 127/60
--- NOTE | 2019-06-27 07:50 | NUR ---
ASSESSMENT IS COMPLTED: PT HAS BEEN RESTING WITH EYES CLOSED. IV SITE IS FREE FROM REDNESS OR EDEMA. HR IS REG,PULSES ARE STRONG X4, ABD IS SOFT WITH ACTIVE BS BREATH SOUNDS ARE CLEAR,BILATERALLY, TELE MONITOR IN PLACE. CONTINUE TO OSBERVE AND MONITOR.
--- NOTE | 2019-06-27 08:37 | NUR ---
INFORMED FAMILY THAT DR CRISTINA WILL BE IN TODAY AND WILL HAVE HIM CALL AND LET HIM KNOW WHAT IS GOING ON.
[2019-06-27 11:06] VITALS: BP 138/75
[2019-06-27] MEDS ORDERED: MIRTAZAPINE15 MG PO (11:29)
[2019-06-27] MEDS ORDERED: ALPRAZOLAM0.5 M2 PO (11:30)
--- NOTE | 2019-06-27 12:00 | NUR ---
PT HAS BEEN RESTING IN BED WITH NO DISTRESS NOTED. IV SITE IS FREE FROM REDNESS OR EDEMA. FAMILY HAS BEEN NOTIFIED OF THE DISCHARGE.
--- NOTE | 2019-06-27 13:59 | NUR ---
DISCONTINUED THE IV SITE AND TELE MONITOR SPOKE WITH PT RE: O2 IS AT HOME WILL CALL SPOUSE AND HAVE HIM BRING. REFUSES TO SIGN THE DISCHARGE INSTRUCTIONS.,
--- NOTE | 2019-06-27 14:02 | NUR ---
PTS SPOUSE WILL BRING HER CLOTHES AND O2 TANK.
--- NOTE | 2019-06-27 15:20 | NUR ---
INFORMED SPOUSE OF THE HOME HEALTH CHANGE.
--- NOTE | 2019-06-27 15:20 | NUR ---
Discharge instructions given. Patient verbalizes understanding of same. Discharged in stable condition via Wheelchair to Home with family. All belongings sent with pt.
--- NOTE | 2019-06-27 15:47 | NUR ---
PT note Initially patient was somnolent but did perk up as treatment progressed. She was able to get up to standing positon with min assist of 1 and then to bedside commode. She is able to stand with walker and min assist and I recommended she get OOB daily and ambulate daily. Am Pac is 12 and she is limited by dyspnea. I agree with medical that she would be too isolated in ECF and would do better to go home with home health and be able to have her support system close by
== END 2019-06-27 15:20 | disposition home health service (06) | DRG 641 ==
LOC: ED 15:13 → ED-I 19:08 → ED 19:18 → MS2 19:19 → ED-I 19:19 → MS2 19:35
PROVIDERS: Nurse Practitioner Family; ADMIT Internal Medicine; ATTEND Internal Medicine
DX: E87.1 Hypo-osmolality and hyponatremia (principal); J96.11 Chronic respiratory failure with hypoxia; E87.6 Hypokalemia; J43.9 Emphysema, unspecified; E87.2 Acidosis; F41.0 Panic disorder [episodic paroxysmal anxiety]; R53.1 Weakness; R63.0 Anorexia; Z99.81 Dependence on supplemental oxygen; Z87.891 Personal history of nicotine dependence; Z87.440 Personal history of urinary (tract) infections

== ENCOUNTER 2019-06-28 13:28 | Emergency (ER) | payer BC ==
[~2019-06-28 13:28] MED LIST changes: +ALPRAZOLAM0.5 M2 PO; +MIRTAZAPINE15 MG PO; +SPIRIVA RE1.25 MCG/A INHW/SPAC; +ZOLOFT100 MG PO
[2019-06-28 14:13] LABS: HEMATOCRIT 34.1 % (37.0-47.0); HEMOGLOBIN 9.9 g/dl (12.0-16.0); IMMATURE GRANULOCYTES 0.8 % (0.0-5.0); MEAN CORPUSCULAR HGB 24.7 pG CALC (26.0-32.0); NEUT# 6.3 thou/uL (2.00-7.15); RED BLOOD COUNT 4.01 mill/uL (4.20-5.60); RED CELL DISTRI WIDTH 16.5 % (11.5-15.5)
[2019-06-28 14:28] LABS: ALBUMIN 3.8 g/dL (3.2-5.0); ALKALINE PHOSPHATASE 61 u/l (38-126); BILIRUBIN, TOTAL 0.5 mg/dL (0.0-1.4); BUN 31 mg/dL (8-23); BUN/CREATININE RATIO 76 (12-20 (CALC)); C-REACTIVE PROTEIN 1.5 mg/dL (0-0.9); CHLORIDE 87 mmol/l (95-108); CREATININE 0.4 mg/dL (0.5-1.0); GFR > 60 ML/MIN (>=60 (CALC)); GFR FOR AFR.AMER. > 60 ML/MIN (>=60 (CALC)); POTASSIUM 3.5 mmol/l (3.5-5.1); SGOT/AST 25 u/l (9-36); SODIUM 138 mmol/l (137-146); TOTAL PROTEIN 6.1 g/dL (6.3-8.2)
[2019-06-28 14:30] LABS: PROTHROMBIN TIME 10.5 SECONDS (9.0-12.5)
[2019-06-28 14:32] LABS: ANION GAP 6 (6-22 (CALC))
[2019-06-28 14:37] LABS: CARBON DIOXIDE 49 mmol/l (22-30)
[2019-06-28 17:30] LABS: URINE BILIRUBIN - DIPSTICK NEGATIVE (NEGATIVE); URINE BLOOD DIPSTICK NEGATIVE (NEGATIVE); URINE COLOR YELLOW; URINE GLUCOSE - DIPSTICK NEGATIVE (NEGATIVE); URINE KETONE 15 mg/dL (NEGATIVE); URINE LEUK ESTERASE NEGATIVE (NEGATIVE); URINE NITRITE - DIPSTICK NEGATIVE (Negative); URINE PROTEIN - DIPSTICK NEGATIVE (NEG-TRACE); URINE SPECIFIC GRAVITY <=1.005; URINE UROBILINOGEN - DIPSTICK 0.2 E.U./dL (0.2)
[2019-06-29 00:30] VITALS: BP 112/63
== END 2019-06-29 00:50 | disposition short-term general hospital (02) | DRG 192 ==
LOC: ED 13:28
PROVIDERS: Family Medicine
PROC: 5A09357 Assistance with Respiratory Ventilation, Less than 24 Consecutive Hours, Continuous Positive Airway Pressure (ICD-10-PCS; principal; 2019-06-28)
DX: J43.9 Emphysema, unspecified (principal); Z20.828 Contact with and (suspected) exposure to other viral communicable diseases
CPT/HCPCS: Q9967

== ENCOUNTER 2019-09-30 07:42 | Inpatient (IN) | payer BC, MEDICARE ==
[2019-09-30] VITALS (11 sets, daily range): BP systolic 107–134; BP diastolic 54–60
[~2019-09-30] VITALS: Ht 152.4 cm; Wt 44.7 kg
--- NOTE | 2019-09-30 07:42 | NUR ---
PATIENT TO ROOM VIA EMS STRETCHER.
--- NOTE | 2019-09-30 08:00 | NUR ---
R.T. AT BEDSIDE FOR EVAL WITH MD AND PLAN OF CARE DISCUSSED
[2019-09-30 08:16] LABS: HEMATOCRIT 33.3 % (37.0-47.0); HEMOGLOBIN 8.7 g/dl (12.0-16.0); MEAN CELL VOLUME 84.5 fL CALC (80.0-100.0); MEAN CORPUSCULAR HGB 22.1 pG CALC (26.0-32.0); MEAN CORPUSCULAR HGB CONC 26.1 g/dL CAL (32.0-36.0); NEUT# 4.84 thou/uL (2.00-7.15); RED BLOOD COUNT 3.94 mill/uL (4.20-5.60); RED CELL DISTRI WIDTH 16.9 % (11.5-15.5)
[2019-09-30 08:34] LABS: ALBUMIN 3.7 g/dL (3.2-5.0); ALKALINE PHOSPHATASE 77 u/l (38-126); BILIRUBIN, TOTAL 0.5 mg/dL (0.0-1.4); BUN 23 mg/dL (8-23); BUN/CREATININE RATIO 52 (12-20 (CALC)); CHLORIDE 85 mmol/l (95-108); CPK 21 u/l (30-165); CREATININE 0.4 mg/dL (0.5-1.0); GFR > 60 ML/MIN (>=60 (CALC)); GFR FOR AFR.AMER. > 60 ML/MIN (>=60 (CALC)); SODIUM 138 mmol/l (137-146); TOTAL PROTEIN 6.1 g/dL (6.3-8.2)
[2019-09-30 08:44] LABS: ANION GAP 7 (6-22 (CALC)); CARBON DIOXIDE 50 mmol/l (22-30); SGOT/AST 47 u/l (9-36)
--- NOTE | 2019-09-30 08:45 | NUR ---
PT REMAINS DROWSY, CO2 ELEVATED MD AWARE AN DBI PAP PLACED SEE FLOW SHEET FOR SETTINGS, VS STABEL NO S/S OF PAIN NOTEDE, SPOUSE REMAINS AT BEDSIDE
[2019-09-30 08:51] LABS: URINE BILIRUBIN - DIPSTICK NEGATIVE (NEGATIVE); URINE BLOOD DIPSTICK TRACE-INTACT (NEGATIVE); URINE COLOR YELLOW; URINE GLUCOSE - DIPSTICK NEGATIVE (NEGATIVE); URINE KETONE NEGATIVE (NEGATIVE); URINE LEUK ESTERASE NEGATIVE (NEGATIVE); URINE NITRITE - DIPSTICK NEGATIVE (Negative); URINE PROTEIN - DIPSTICK 30 mg/dL (NEG-TRACE); URINE SPECIFIC GRAVITY >=1.030; URINE UROBILINOGEN - DIPSTICK 0.2 E.U./dL (0.2)
[2019-09-30 08:59] LABS: URINE RBC 0-2 RBC/hpf (0-5)
[2019-09-30 09:00] LABS: URINE EPITHELIAL CELLS MODERATE EPI/hpf (0-FEW); URINE MUCUS MODERATE hpf (NONE-FEW)
--- NOTE | 2019-09-30 09:30 | NUR ---
PT RESTING TOLERATES BIPAP WELL, IV ABT AND MEDROL GIVEN ORDERED, CALL VERA WITHIN REACH. SPOUSE REMAINS AT BEDSIDE
--- NOTE | 2019-09-30 10:20 | NUR ---
PT RESTING NO S/S OF DISTRESS OR DISCOMFORT, AWARE OF PLANNED ADMISSION, CALL VERA WITHIN REACH.
--- NOTE | 2019-09-30 11:08 | NUR ---
ATTEMPTED TO CALL REPORT, WILL CALL BACK
--- NOTE | 2019-09-30 11:50 | NUR ---
PT RESTING CONTINUES TO TOLERATE BI PAP, RESTING COMFORTABLY, SPOUSE REMAINS AT BEDSIDE
--- NOTE | 2019-09-30 12:26 | NUR ---
REPORT CALLED TO LADONNA SAMAYOA ON ICU-
--- NOTE | 2019-09-30 12:36 | NUR ---
AT BEDSIDE EVAL
--- NOTE | 2019-09-30 12:57 | NUR ---
female pt received to ICU bed 2 via stretcher accompanied by Brenden Norman RN and RT Dong; pt transferred to bed with staff assist; admission assessment completed at this time; pt alert and oriented; denies pain; no n/v noted; c/c of sshortness of breath for a week, worsening today; resp tachypneic and shallow; lungs diminished throughout; skin color wnl; bipap intact with settings of 12/6, 35% FiO2; hr reg; strong pulses; 2+ edema noted to bilat feet, worse in left foot; st on monitor; abd soft with bs present; no bm noted per sports book writer; pt placed on bedpan; voiding 50cc clear yellow urine; #20 flushed andp patent to lac; no redness or edema noted at site; blanchable area noted to coccyx; scattered abrasions/bruising noted; plan of care/ meds explained; call light within reach; will continue to monitor
--- NOTE | 2019-09-30 13:05 | NUR ---
PT TRANSPORTED TO ICU BED 2 ON TELEMETRY & BIPAP WITH Lauren MIRANDA. ACCEPTING NURSE AT BEDSIDE ON ARRIVAL, SPOUSE TOOK BELONGINGS HOME
--- NOTE | 2019-09-30 14:05 | NUR ---
ER staff called; pt belongings was sent home with
--- NOTE | 2019-09-30 16:02 | NUR ---
resting in bed; o2 per nc; no apparent distress noted; iv intact; sr/pac on monitor; call light within reach; will continue to monitor
--- NOTE | 2019-09-30 18:18 | NUR ---
pt awake in bed; no apparent distress noted; o2 per nc; iv intact; st on monitor; call light within reach
--- NOTE | 2019-09-30 18:32 | NUR ---
RT at bedside; bipap reapplied;
--- NOTE | 2019-09-30 20:15 | NUR ---
RESTING IN BED WITH EYES CLOSED. AWAKENS TO NAME. CALM AND COOPERATIVE. RESP NON-LABORED, ON BIPAP SETTINGS, 12/6, O2 35%. O2 SAT 100% BREATH SOUNDS DIMINISHED THROUGHOUT. SALINE LOCK INTACT IN LAC. TIRE SORTER SHOWS ST. DISCUSSED PLAN OF CARE. REVIEWED USE OF CALL VERA AND BED CONTROLS.
--- NOTE | 2019-09-30 20:20 | NUR ---
PATIENT IN AGREEMENT WITH BRUNER CATHETER PLACEMENT. #16 FR BRUNER PLACED WITHOUT DIFFICULTY UNDER STERILE TECHNIQUE, DRAINING DK YELLOW URINE.
--- NOTE | 2019-09-30 22:00 | NUR ---
PATIENT RESTING WITH EYES CLOSED, AROUSES TO NAME. SALINE LOCK IN LAC FLUSHED AND PATENT.
[2019-10-01] VITALS (17 sets, daily range): BP systolic 85–154; BP diastolic 43–87
--- NOTE | 2019-10-01 00:05 | NUR ---
TURNED AND REPOSITIONED. VSS. PATIENT IS ANXIOUS. SUPPORT AND REASSURANCE PROVIDED. ASSISTED PATIENT WITH REMOVING BIPAP MASK BRIEFLY TO TAKE IN PO FLUIDS.
--- NOTE | 2019-10-01 01:44 | NUR ---
XANAX0.5 MG PO FOR RESTLESSNESS AND ANXIETY. VSS. SR-ST ON MONITOR. REMIANS ON BIPAP O2 DECREASED TO 30% BY KIKI/COLOR STRAINER.
--- NOTE | 2019-10-01 04:00 | NUR ---
DOZES FOR SHORT INTERVALS. FREQ SUPPORT AND REASSURANCE NEEDED WHEN AWAKE.
--- NOTE | 2019-10-01 05:52 | NUR ---
VSS. SR ON MONITOR. SALINE LCOK MAINTAINED IN LAC. CONTINUES ON BIPAP , IN NO ACCUTE DISTRESS. BRUNER DRAINED 600 ML OF NELSON URINE.
--- NOTE | 2019-10-01 08:02 | NUR ---
PATIENT ASSSESSMENT AND VITALS COMPLETE. SR ON MONITOR. SALINE LCOK MAINTAINED IN LAC. CONTINUES ON BIPAP, IN NO ACCUTE DISTRESS. BRUNER IN PLACE NELSON URINE DRAINING. SCHEDULED ROCPHINE RUNNING. REPOSITIONED FOR COMFORT. ENCOURAGED TO CALL FOR NEEDS.
--- NOTE | 2019-10-01 09:39 | NUR ---
PT HAVING DIFFICULTY BREATHING. RT PLACED BI-PAP ON PT.
--- NOTE | 2019-10-01 09:58 | NUR ---
DR ELDRIDGE AT BEDSIDE. PT ANXIOS. GIVEN PO XANAX.
--- NOTE | 2019-10-01 12:28 | NUR ---
PT REMOVED IV. SKIN AND SITE INTACT. PLACED NEW IV RAC. SITE IS PATENT. TURNED AND REPOSITIONED. VSS. PATIENT IS ANXIOUS. SUPPORT AND REASSURANCE PROVIDED. ASSISTED PATIENT WITH REMOVING BIPAP MASK BRIEFLY TO TAKE IN PO FLUIDS. CALL VERA PLACED IN PTS HAND. WILL CONTINUE TO OBSERVE.
--- NOTE | 2019-10-01 13:09 | NUR ---
PT REQUESTED AND ATE JELLO AND APPLE SAUCE. PT WAS NOT INTERESTED IN EATING MOST OF THE DAY. CHANGED DIET TO MECHANICAL SOFT FOR SUPPER MEAL.
--- NOTE | 2019-10-01 16:07 | NUR ---
RESTING IN BED WATCHING TV, O2 PER NC; NO APPARENT DISTRESS; IV INTACT; NSR WITH PACs ON MONITOR. CALL LIGHT WITHIN REACH. WILL CONTINUE TO MONITOR.
--- NOTE | 2019-10-01 19:25 | NUR ---
ASSESSMENT COMPLETED. IV SITE PATENT AND SL. DENIES NEEDS/PAIN AT THIS TIME. O2 INFUSING PER NC @2LITERS/MIN. VSS. SPO2 95% AT THIS TIME. NO DISTRESS NOTED. ENCOURAGED TO CALL FOR ANY NEEDS. CALL LIGHT IS IN REACH.
--- NOTE | 2019-10-01 23:00 | NUR ---
RESTING IN BED WITH EYES CLOSED; NO DISTRESS NOTED;WILL CONTINUE TO MONITOR.
[2019-10-02] VITALS (11 sets, daily range): BP systolic 90–134; BP diastolic 46–79
--- NOTE | 2019-10-02 03:46 | NUR ---
PT. RESTING IN BED CHANGED B/P CUFF TO SMALL CUFF MEDIU, IS TOO BIG B/P READING WNL. NO DISTRESS NOTED. PT. IS SLEEPING. CALL LIGHT IS IN REACH.SPO2 WNL. WILL CONTINUE TO MONITOR.
[2019-10-02 05:28] LABS: HEMATOCRIT 31.8 % (37.0-47.0); HEMOGLOBIN 8.3 g/dl (12.0-16.0); MEAN CORPUSCULAR HGB 21.7 pG CALC (26.0-32.0); MEAN CORPUSCULAR HGB CONC 26.1 g/dL CAL (32.0-36.0); RED BLOOD COUNT 3.83 mill/uL (4.20-5.60); RED CELL DISTRI WIDTH 16.2 % (11.5-15.5)
--- NOTE | 2019-10-02 05:45 | NUR ---
LINENS CHANGED AND REPOSITIONED. SCHED SOLU-MEDROL GIVEN. ENCOURAGED TO CALL FOR ANY NEEDS. CALL LIGHT IS IN REACH.
[2019-10-02 05:53] LABS: BUN 29 mg/dL (8-23); BUN/CREATININE RATIO 66 (12-20 (CALC)); CHLORIDE 88 mmol/l (95-108); CREATININE 0.4 mg/dL (0.5-1.0); GFR > 60 ML/MIN (>=60 (CALC)); GFR FOR AFR.AMER. > 60 ML/MIN (>=60 (CALC)); MAGNESIUM 2.1 mg/dL (1.6-2.3); POTASSIUM 4.8 mmol/l (3.5-5.1); SODIUM 138 mmol/l (137-146)
[2019-10-02 06:18] LABS: ANION GAP 7 (6-22 (CALC)); CARBON DIOXIDE 48 mmol/l (22-30)
--- NOTE | 2019-10-02 07:31 | NUR ---
REPORT TAKEN FROM ALDA SAMAYOA. ASSESSMENT COMPLETED. IV SITE PATENT AND SL. DENIES NEEDS/PAIN AT THIS TIME. O2 INFUSING PER NC @2LITERS/MIN. VSS. SPO2 94% AT THIS TIME. NO DISTRESS NOTED. ENCOURAGED TO CALL FOR ANY NEEDS. CALL LIGHT IS IN REACH.
--- NOTE | 2019-10-02 12:11 | NUR ---
PT EATING LUNCH. PT REQUESTS THAT FOOD BE CHOPPED INTO SMALL PIECE. NO DISTRESS NOTED;WILL CONTINUE TO MONITOR.
--- NOTE | 2019-10-02 15:26 | NUR ---
PT RESTING QUIETLY. NO DISTRESS NOTED. PT REPOSITIONED TO RIGHT SIDE TO RELEIVE PRESSURE FROM HER COCCYX. ENCOURAGED TO CALL FOR NEEDS. CALL VERA WITHIN REACH.
--- NOTE | 2019-10-02 18:50 | NUR ---
Report received from DANITA Holden. PT is resting in bed, no signs or symptoms of distress. Safety precautions in place, will continue to monitor.
--- NOTE | 2019-10-02 20:08 | NUR ---
PT RESTING IN BED, ALERT AND ORIENTED. RESPIRATIONS LABORED ON O2 @ 2L VIA NC. LUNGS SOUND DIMINISHED. PEDAL PULSES ARE STRONG. PT DENIES ANY PAIN OR DISCOMFORT AT THIS TIME. SAFETY PRECAUTIONS IN PLACE. WILL CONTINUE TO MONITOR.
--- NOTE | 2019-10-02 22:30 | NUR ---
PT RESTING IN BED. #22 RAC INFILTRATED, IV REMOVED, CATHETER INTACT. NEW IV STARTED #22 LAC SL, PT TOLERATED WELL.
--- NOTE | 2019-10-02 22:50 | NUR ---
PT RESTING IN BED, DROWSY. PT GOWN WET, PT GIVEN A BED BATH SOILED LINENS CHANGED. RESPIRATIONS SHALLOW ON O2 @ 4L VIA NC, O2 SATS DROPPING DOWN IN TO THE 70S, RT CALLED, PT PLACED ON BIPAP, PT TOLERATING WELL. SAFETY PRECAUTIONS PLACE. WILL CONTINUE TO MONITOR
[2019-10-03] VITALS (10 sets, daily range): BP systolic 110–142; BP diastolic 55–77
--- NOTE | 2019-10-03 00:36 | NUR ---
PT RESTING IN BED, RESPIRATIONS SHALLOW ON BIPAP, SAFETY PRECAUTIONS IN PLACE. WILL CONTINUE TO MONITOR.
--- NOTE | 2019-10-03 01:56 | NUR ---
PT RESTING IN BED, NO S/S OF DISTRESS
--- NOTE | 2019-10-03 03:55 | NUR ---
PT RESTING IN BED, RESPIRATIONS SHALLOW ON BIPAP. SAFETY PRECAUTIONS IN PLACE. WILL CONTINUE TO MONITOR.
--- NOTE | 2019-10-03 08:06 | NUR ---
BIPAP STANDBY. PLACED ON 2L NC.
--- NOTE | 2019-10-03 08:06 | NUR ---
PATIENT SITTING IN BED SEMIFOWLERS, BIPAP IN PLACE. ALERT WITH ANXIOUSNESS. AM MEDS ADMINISTERED. WILL CONTINUE TO MONITOR.
--- NOTE | 2019-10-03 10:10 | NUR ---
PATIENT RESTING IN BED. IV MEDS INFUSING WITHOUT COMPLICATIONS. VITALS STABLE. NO SIGNS OF DISTRESS.
--- NOTE | 2019-10-03 12:00 | NUR ---
PATIENT SEMIFOWLERS IN BED, ALERT TO VOICE COMMAND. REPOSITIONED TO HIGH FOWLERS AND LUNCH PROVIDED. NO OTHER NEEDS OR CONCERNS AT THIS TIME.
[2019-10-03] MEDS ORDERED: PREDNISONE10 MG PO (12:52)
[2019-10-03] MEDS ORDERED: ALPRAZOLAM0.5 M2 PO (12:53)
[2019-10-03] MEDS ORDERED: ZITHROMAX250 MG PO (12:53)
--- NOTE | 2019-10-03 14:24 | NUR ---
PATIENT TRANSFERED TO BEDSIDE CHAIR WITHOUT DIFFICULTY. STATES SHE FEELS A LITTLE ANXIOUS BUT WAS ADVISED TO RELAX AND TAKE SOME DEEP BREATHS. PERSONAL ITEMS AND CALL LIGHT WITHIN REACH.
--- NOTE | 2019-10-03 16:50 | NUR ---
PATIENT AWAITING DISCHARGE AT THIS TIME. IV AND BRUNER REMOVED WITHOUT COMPLICATIONS. VITALS STABLE. WAITING ON RETURN CALL FROM MD TO ENSURE BIPAP ORDER PROCESSED AND IN PLACE BY HOME HEALTH. AT BEDSIDE. DISCHARGE PAPERWORK AND INSTRUCTIONS PROVIDED.
--- NOTE | 2019-10-03 17:50 | NUR ---
PATIENT DISCHARGED VIA WHEELCHAIR. OXYGEN IN PLACE AND ACCOMPANYING.
== END 2019-10-03 17:48 | DRG 189 ==
LOC: ED 07:42 → ED-I 08:19 → ED 08:19 → ED-I 08:20 → ED 09:58 → ICU 09:59
PROVIDERS: Family Medicine; ADMIT Internal Medicine; ATTEND Internal Medicine
PROC: 5A09457 Assistance with Respiratory Ventilation, 24-96 Consecutive Hours, Continuous Positive Airway Pressure (ICD-10-PCS; principal; 2019-09-30)
DX: J96.22 Acute and chronic respiratory failure with hypercapnia (principal); J18.9 Pneumonia, unspecified organism; R64 Cachexia; Z68.1 Body mass index [BMI] 19.9 or less, adult; J96.21 Acute and chronic respiratory failure with hypoxia; J43.9 Emphysema, unspecified; F41.9 Anxiety disorder, unspecified; F32.9 Major depressive disorder, single episode, unspecified; Z85.3 Personal history of malignant neoplasm of breast; Z87.891 Personal history of nicotine dependence; Z99.81 Dependence on supplemental oxygen; Z20.828 Contact with and (suspected) exposure to other viral communicable diseases
CPT/HCPCS: J2060